=== PATIENT | male | born 1970 | race Caucasian/White ===

== ENCOUNTER → 2020-01-09 17:40 | Outpatient (BNVA) | payer MEDICAID, SELFPAY | PROVIDERS: Family Provider Family Medicine; PCP Family Medicine; Visit Provider Nurse Practitioner Family | DX: R05 Cough (principal); R68.89 Other general symptoms and signs | CPT/HCPCS: 87804 ==

== ENCOUNTER → 2020-06-11 09:28 | Outpatient (BNVA) | payer MEDICAID, SELFPAY | PROVIDERS: Family Provider Family Medicine; PCP Family Medicine; Visit Provider Psychiatry & Neurology Psychiatry | DX: F32.9 Major depressive disorder, single episode, unspecified (principal); F33.2 Major depressive disorder, recurrent severe without psychotic features; F43.12 Post-traumatic stress disorder, chronic | CPT/HCPCS: 90792; 80061; 83036; 83721 ==

== ENCOUNTER → 2020-07-09 14:00 | Outpatient (BNVA) | payer MEDICAID, SELFPAY ==
[2020-06-12 10:32] VITALS: BP 156/100; BMI 30.5
== END ==
PROVIDERS: Family Provider Family Medicine; PCP Family Medicine; Visit Provider Psychiatry & Neurology Psychiatry
DX: F33.2 Major depressive disorder, recurrent severe without psychotic features (principal)
CPT/HCPCS: 99203

== ENCOUNTER → 2020-08-28 09:42 | Outpatient (BNVA) | payer MEDICAID, SELFPAY ==
[2020-06-12 10:32] VITALS: BP 156/100; BMI 30.5
== END ==
PROVIDERS: Family Provider Family Medicine; PCP Family Medicine; Referring Provider Family Medicine; Visit Provider Anesthesiology Pain Medicine
DX: M47.812 Spondylosis without myelopathy or radiculopathy, cervical region (principal); M54.9 Dorsalgia, unspecified; M47.816 Spondylosis without myelopathy or radiculopathy, lumbar region; M19.90 Unspecified osteoarthritis, unspecified site; G62.9 Polyneuropathy, unspecified; M25.559 Pain in unspecified hip; M62.830 Muscle spasm of back; M51.36 Other intervertebral disc degeneration, lumbar region; F17.220 Nicotine dependence, chewing tobacco, uncomplicated; Z79.891 Long term (current) use of opiate analgesic
CPT/HCPCS: 99204

== ENCOUNTER 2020-09-24 13:13 | Outpatient (CLI) | payer MEDICAID, SELFPAY ==
[2020-06-12 10:32] VITALS: BP 156/100; BMI 30.5
--- NOTE | 2020-09-24 13:18 | XR_ITS ---
WS: [id number] Cervical spine, AP, odontoid, lateral and both obliques, 09/24/2020 Clinical Data: neck pain Comparison: None. Findings: No compression fractures are seen. The disc heights are normal. There is calcification of t he anterior longitudinal ligaments at C5-C6 and C6-C7. The oblique films show no foraminal narrowing. There is no prevertebral soft tissue swelling. The odontoid is unremarkable. The soft tissues of the neck and the lung apices are normal. XR/XR cervical spine 4-5V [id number] Impression: Calcification of the anterior longitudinal ligament at C5-C6 and C6-C7.
== END 2020-09-24 13:14 | disposition home or self-care (01) ==
LOC: RAD 13:17
PROVIDERS: PCP Family Medicine; Visit Provider Anesthesiology Pain Medicine
DX: M54.2 Cervicalgia (principal)
CPT/HCPCS: 72050

== ENCOUNTER → 2020-09-25 09:48 | Outpatient (BNVA) | payer MEDICAID, SELFPAY ==
[2020-06-12 10:32] VITALS: BP 156/100; BMI 30.5
== END ==
PROVIDERS: Family Provider Family Medicine; PCP Family Medicine; Visit Provider Anesthesiology Pain Medicine
DX: M51.36 Other intervertebral disc degeneration, lumbar region (principal); M47.816 Spondylosis without myelopathy or radiculopathy, lumbar region; M54.9 Dorsalgia, unspecified; M19.90 Unspecified osteoarthritis, unspecified site; M47.812 Spondylosis without myelopathy or radiculopathy, cervical region; G62.9 Polyneuropathy, unspecified; M25.551 Pain in right hip; M25.552 Pain in left hip; M62.830 Muscle spasm of back; F17.220 Nicotine dependence, chewing tobacco, uncomplicated; Z79.891 Long term (current) use of opiate analgesic
CPT/HCPCS: 99214

== ENCOUNTER → 2020-10-23 09:00 | Outpatient (BNVA) | payer MEDICAID, SELFPAY ==
[2020-06-12 10:32] VITALS: BP 156/100; BMI 30.5
== END ==
PROVIDERS: Family Provider Family Medicine; PCP Family Medicine; Visit Provider Anesthesiology Pain Medicine
DX: M51.36 Other intervertebral disc degeneration, lumbar region (principal); M47.816 Spondylosis without myelopathy or radiculopathy, lumbar region; M54.9 Dorsalgia, unspecified; M47.812 Spondylosis without myelopathy or radiculopathy, cervical region; M19.90 Unspecified osteoarthritis, unspecified site; M25.551 Pain in right hip; M25.552 Pain in left hip; G62.9 Polyneuropathy, unspecified; M62.830 Muscle spasm of back; F17.220 Nicotine dependence, chewing tobacco, uncomplicated; Z79.891 Long term (current) use of opiate analgesic
CPT/HCPCS: 99214

== ENCOUNTER → 2020-12-07 13:01 | Outpatient (BNVA) | payer MEDICAID, SELFPAY ==
[2020-06-12 10:32] VITALS: BP 156/100; BMI 30.5
== END ==
PROVIDERS: Family Provider Family Medicine; PCP Family Medicine; Visit Provider Anesthesiology Pain Medicine
DX: M54.16 Radiculopathy, lumbar region (principal); M51.36 Other intervertebral disc degeneration, lumbar region; M47.816 Spondylosis without myelopathy or radiculopathy, lumbar region; M54.9 Dorsalgia, unspecified; M47.812 Spondylosis without myelopathy or radiculopathy, cervical region; M19.90 Unspecified osteoarthritis, unspecified site; M25.551 Pain in right hip; M25.552 Pain in left hip; M62.830 Muscle spasm of back; G62.9 Polyneuropathy, unspecified; F17.220 Nicotine dependence, chewing tobacco, uncomplicated
CPT/HCPCS: 64483; 64484; 99212; J1100; J3490

== ENCOUNTER → 2021-01-04 09:01 | Outpatient (BNVA) | payer MEDICAID, SELFPAY ==
[2020-06-12 10:32] VITALS: BP 156/100; BMI 30.5
== END ==
PROVIDERS: Family Provider Family Medicine; PCP Family Medicine; Visit Provider Anesthesiology Pain Medicine
DX: M51.36 Other intervertebral disc degeneration, lumbar region (principal); M47.816 Spondylosis without myelopathy or radiculopathy, lumbar region; M54.9 Dorsalgia, unspecified; M47.812 Spondylosis without myelopathy or radiculopathy, cervical region; M16.0 Bilateral primary osteoarthritis of hip; G62.9 Polyneuropathy, unspecified; M25.559 Pain in unspecified hip; M62.830 Muscle spasm of back; F17.220 Nicotine dependence, chewing tobacco, uncomplicated; Z79.891 Long term (current) use of opiate analgesic
CPT/HCPCS: 99214

== ENCOUNTER → 2021-02-04 12:52 | Outpatient (BNVA) | payer MEDICAID, SELFPAY ==
[2021-01-04 10:03] VITALS: BP 156/100; BMI 30.5
== END ==
PROVIDERS: Family Provider Family Medicine; PCP Family Medicine; Visit Provider Anesthesiology Pain Medicine
DX: M54.41 Lumbago with sciatica, right side (principal); M51.36 Other intervertebral disc degeneration, lumbar region; M54.9 Dorsalgia, unspecified; M47.812 Spondylosis without myelopathy or radiculopathy, cervical region; M47.816 Spondylosis without myelopathy or radiculopathy, lumbar region; M19.90 Unspecified osteoarthritis, unspecified site; G62.9 Polyneuropathy, unspecified; M25.551 Pain in right hip; M62.830 Muscle spasm of back; F17.220 Nicotine dependence, chewing tobacco, uncomplicated; Z79.891 Long term (current) use of opiate analgesic
CPT/HCPCS: 99214

== ENCOUNTER → 2021-02-15 13:07 | Outpatient (BNVA) | payer MEDICAID, SELFPAY ==
[2021-01-04 10:03] VITALS: BP 156/100; BMI 30.5
== END ==
PROVIDERS: Family Provider Family Medicine; PCP Family Medicine; Visit Provider Anesthesiology Pain Medicine
DX: M47.816 Spondylosis without myelopathy or radiculopathy, lumbar region (principal); M54.9 Dorsalgia, unspecified; F17.220 Nicotine dependence, chewing tobacco, uncomplicated; Z79.891 Long term (current) use of opiate analgesic
CPT/HCPCS: 64493; 64494; 64495; J1030; J3490

== ENCOUNTER → 2021-03-09 12:46 | Outpatient (BNVA) | payer MEDICAID, SELFPAY ==
[2021-01-04 10:03] VITALS: BP 156/100; BMI 30.5
== END ==
PROVIDERS: Family Provider Family Medicine; PCP Family Medicine; Visit Provider Anesthesiology Pain Medicine
DX: M51.16 Intervertebral disc disorders with radiculopathy, lumbar region (principal); M51.36 Other intervertebral disc degeneration, lumbar region; M47.816 Spondylosis without myelopathy or radiculopathy, lumbar region; M54.9 Dorsalgia, unspecified; M47.812 Spondylosis without myelopathy or radiculopathy, cervical region; M19.90 Unspecified osteoarthritis, unspecified site; G62.9 Polyneuropathy, unspecified; M25.551 Pain in right hip; M25.552 Pain in left hip; M62.830 Muscle spasm of back; Z79.891 Long term (current) use of opiate analgesic
CPT/HCPCS: 99214

== ENCOUNTER → 2021-03-18 15:15 | Outpatient (BNVA) | payer MEDICAID, SELFPAY ==
[2021-01-04 10:03] VITALS: BP 156/100; BMI 30.5
== END ==
PROVIDERS: Family Provider Family Medicine; PCP Family Medicine; Visit Provider Psychiatry & Neurology Psychiatry
DX: Z72.820 Sleep deprivation (principal); F33.2 Major depressive disorder, recurrent severe without psychotic features
CPT/HCPCS: 99214

== ENCOUNTER 2021-04-06 15:42 | Outpatient (CLI) | payer MEDICAID, SELFPAY ==
[2021-01-04 10:03] VITALS: BP 156/100; BMI 30.5
--- NOTE | 2021-04-06 16:00 | MR_ITS ---
WS: [id number] MRI LUMBAR SPINE NONCONTRAST HISTORY: M51.16 - Intervertebral disc disorders with radiculopathy... COMPARISON: None available. TECHNIQUE: Sagittal and axial multisequence imaging is submitted. Normal lumbar alignment with no compression fractures or marrow edema. Mild desiccation of the L5-S1 disc without loss of height. Conus terminates normally at L1. L1-L2: Normal. L2-L3: Normal. L3-L4: Very mild disc bulging and ligamentum flavum hypertrophy no significant stenosis. L4-L5: Mild annular disc bulging with mild ligamentum flavum hypertrophy and facet arthritis. There i s mild narrowing of the central canal and subarticular recesses and foramina. Very mild disc encroach ment upon the L5 nerve roots. L5-S1: Mild annular disc bulging without contact on the nerve roots. Mild facet arthritis. No paravertebral soft tissue abnormalities. MR/MR lumbar spine wo con* [id number] IMPRESSION: 1. Very mild central and bilateral subarticular recess and foraminal stenosis at L4-5 without a focal disc protrusion. 2. Mild disc desiccation at L5-S1.
== END 2021-04-06 15:43 ==
LOC: RADSHAW 15:44
PROVIDERS: Family Provider Family Medicine; PCP Family Medicine; Visit Provider Anesthesiology Pain Medicine
DX: M51.36 Other intervertebral disc degeneration, lumbar region (principal); M51.16 Intervertebral disc disorders with radiculopathy, lumbar region; M47.816 Spondylosis without myelopathy or radiculopathy, lumbar region; M54.9 Dorsalgia, unspecified; M47.812 Spondylosis without myelopathy or radiculopathy, cervical region; M16.0 Bilateral primary osteoarthritis of hip; G62.9 Polyneuropathy, unspecified; M62.830 Muscle spasm of back; Z79.891 Long term (current) use of opiate analgesic
CPT/HCPCS: 72148; 99214

== ENCOUNTER → 2021-05-05 14:55 | Outpatient (BNVA) | payer OTHER, SELFPAY ==
[2021-01-04 10:03] VITALS: BP 156/100; BMI 30.5
== END ==
PROVIDERS: Family Provider Family Medicine; PCP Family Medicine; Visit Provider Psychiatry & Neurology Psychiatry
DX: F33.2 Major depressive disorder, recurrent severe without psychotic features (principal)
CPT/HCPCS: 80061; 83036

== ENCOUNTER → 2021-05-10 08:33 | Outpatient (BNVA) | payer MEDICAID, SELFPAY ==
[2021-05-07 14:25] VITALS: BP 143/86; BMI 33.1
== END ==
PROVIDERS: Family Provider Family Medicine; PCP Family Medicine; Visit Provider Anesthesiology Pain Medicine
DX: M51.16 Intervertebral disc disorders with radiculopathy, lumbar region (principal); M51.36 Other intervertebral disc degeneration, lumbar region; M47.816 Spondylosis without myelopathy or radiculopathy, lumbar region; M54.9 Dorsalgia, unspecified; M47.812 Spondylosis without myelopathy or radiculopathy, cervical region; M19.90 Unspecified osteoarthritis, unspecified site; G62.9 Polyneuropathy, unspecified; M25.551 Pain in right hip; M25.552 Pain in left hip; M62.830 Muscle spasm of back; Z79.899 Other long term (current) drug therapy; Z79.891 Long term (current) use of opiate analgesic
CPT/HCPCS: 99215

== ENCOUNTER → 2021-05-13 15:18 | Outpatient (BNVA) | payer MEDICAID, OTHER, SELFPAY ==
[2021-05-10 09:12] VITALS: BP 143/86; BMI 33.1
== END ==
PROVIDERS: Family Provider Family Medicine; PCP Family Medicine; Visit Provider Psychiatry & Neurology Psychiatry
DX: F33.2 Major depressive disorder, recurrent severe without psychotic features (principal)
CPT/HCPCS: 99214

== ENCOUNTER → 2021-06-07 08:44 | Outpatient (BNVA) | payer MEDICAID, SELFPAY ==
[2021-05-10 09:12] VITALS: BP 143/86; BMI 33.1
== END ==
PROVIDERS: Family Provider Family Medicine; PCP Family Medicine; Visit Provider Anesthesiology Pain Medicine
DX: R10.32 Left lower quadrant pain (principal); M51.16 Intervertebral disc disorders with radiculopathy, lumbar region; M51.36 Other intervertebral disc degeneration, lumbar region; M47.816 Spondylosis without myelopathy or radiculopathy, lumbar region; M47.812 Spondylosis without myelopathy or radiculopathy, cervical region; M19.90 Unspecified osteoarthritis, unspecified site; G62.9 Polyneuropathy, unspecified; M25.551 Pain in right hip; M25.552 Pain in left hip; M62.830 Muscle spasm of back; Z79.891 Long term (current) use of opiate analgesic
CPT/HCPCS: 99214

== ENCOUNTER → 2021-07-09 09:39 | Outpatient (BNVA) | payer MEDICAID, SELFPAY ==
[2021-05-10 09:12] VITALS: BP 143/86; BMI 33.1
== END ==
PROVIDERS: Family Provider Family Medicine; PCP Family Medicine; Visit Provider Anesthesiology Pain Medicine
DX: G89.29 Other chronic pain (principal); M47.816 Spondylosis without myelopathy or radiculopathy, lumbar region; M51.16 Intervertebral disc disorders with radiculopathy, lumbar region; M51.36 Other intervertebral disc degeneration, lumbar region; M47.812 Spondylosis without myelopathy or radiculopathy, cervical region; M16.0 Bilateral primary osteoarthritis of hip; M19.90 Unspecified osteoarthritis, unspecified site; G62.9 Polyneuropathy, unspecified; M62.830 Muscle spasm of back; Z79.891 Long term (current) use of opiate analgesic
CPT/HCPCS: 99213

== ENCOUNTER → 2021-08-10 09:42 | Outpatient (BNVA) | payer MEDICAID, SELFPAY ==
[2021-05-10 09:12] VITALS: BP 143/86; BMI 33.1
== END ==
PROVIDERS: Family Provider Family Medicine; PCP Family Medicine; Visit Provider Anesthesiology Pain Medicine
DX: M51.36 Other intervertebral disc degeneration, lumbar region (principal); M47.816 Spondylosis without myelopathy or radiculopathy, lumbar region; M51.16 Intervertebral disc disorders with radiculopathy, lumbar region; M47.812 Spondylosis without myelopathy or radiculopathy, cervical region; M16.0 Bilateral primary osteoarthritis of hip; G62.9 Polyneuropathy, unspecified; M62.830 Muscle spasm of back; Z79.891 Long term (current) use of opiate analgesic
CPT/HCPCS: 99214

== ENCOUNTER → 2022-01-18 13:15 | Outpatient (BNVA) | payer MEDICAID, SELFPAY ==
[2021-05-10 09:12] VITALS: BP 143/86; BMI 33.1
== END ==
PROVIDERS: Family Provider Family Medicine; PCP Family Medicine; Visit Provider Psychiatry & Neurology Psychiatry
DX: F33.2 Major depressive disorder, recurrent severe without psychotic features (principal); M51.36 Other intervertebral disc degeneration, lumbar region
CPT/HCPCS: 99214

== ENCOUNTER → 2022-04-28 10:22 | Outpatient (BNVA) | payer MEDICAID, SELFPAY ==
[2021-05-10 09:12] VITALS: BP 143/86; BMI 33.1
== END ==
PROVIDERS: Family Provider Family Medicine; PCP Family Medicine; Referring Provider Family Medicine; Visit Provider Internal Medicine
DX: E11.40 Type 2 diabetes mellitus with diabetic neuropathy, unspecified (principal); E11.59 Type 2 diabetes mellitus with other circulatory complications; I25.10 Atherosclerotic heart disease of native coronary artery without angina pectoris; E78.2 Mixed hyperlipidemia; Z79.4 Long term (current) use of insulin; Z79.84 Long term (current) use of oral hypoglycemic drugs
CPT/HCPCS: 99204

== ENCOUNTER 2023-07-26 10:53 | Emergency (ER) | payer MEDICAID, SELFPAY ==
[2023-03-28 13:21] VITALS: BP 174/115; BMI 34.6
[2023-07-26 11:21] VITALS: BP 165/103; PULSE 92; RESP 18; TEMP 36.8; O2SAT 97
[2023-07-26 12:16] LABS: Basophils # 0.1 10^3/uL (0.0-0.1); Basophils % 0.8 %; Eosinophils # 0.2 10^3/uL (0.0-0.8); Eosinophils % 2.2 %; Hematocrit 43.3 % (37-53); Lymphocytes # 2.4 10^3/uL (0.8-4.8); Lymphocytes % 23.7 %; Mean Corpuscular HGB Conc 35.3 g/dL (30-55); Mean Corpuscular Hemoglobin 31.6 pg (27-33); Mean Corpuscular Volume 89.5 fl (82-101); Mean Platelet Volume 8.6 fL (7.4-10.4); Monocytes # 0.5 10^3/uL (0.2-0.9); Monocytes % 5.1 %; Neutrophils # 6.86 10^3/uL (1.8-7.7); Neutrophils % 67.5 %; Nucleated Red Blood Cells % 0 %; Platelet Count 305 10^3/cmm (157-399); Red Blood Count 4.84 10^6/uL (3.85-5.65); Red Cell Distribution Width 12.9 % (12.1-15.1); White Blood Count 10.16 10^3/uL (3.29-11.43)
[2023-07-26 12:28] LABS: Albumin Level 4.6 g/dL (3.5-5.2)
[2023-07-26 12:37] LABS: Alanine Aminotransferase 14 U/L (0-41); Alkaline Phosphatase 102 U/L (40-130); Anion Gap 17.7 (5-19); Aspartate Amino Transferase 11 U/L (0-40); Blood Urea Nitrogen 21 mg/dL (6-20); Calcium 9.9 mg/dL (8.5-10.5); Carbon Dioxide 27 mmol/L (22-29); Chloride 94 mmol/L (98-107); Globulin 3.2 g/dL (1.3-4.6); Glomerular Filtration Rate 62.9 mL/min (90-130); Glucose 243 mg/dL (65-115); Lipase 23 U/L (13-60); Osmolality Calculated 289 mOsm/kg (285-295); Potassium 4.7 mmol/L (3.5-5.1); Sodium 134 mmol/L (136-145); Total Bilirubin 0.8 mg/dL (0.15-1.2); Total Protein 7.8 g/dL (6.6-8.7)
== END 2023-07-26 13:51 | disposition left against medical advice (07) ==
PROVIDERS: Emergency Medicine; Emergency Provider Family Medicine; PCP Family Medicine
DX: Z53.21 Procedure and treatment not carried out due to patient leaving prior to being seen by health care provider (principal)
CPT/HCPCS: 80053; 83690; 85025; 99283

== ENCOUNTER 2025-02-14 13:58 | Outpatient (CLI) | payer MEDICAID, SELFPAY ==
[2023-03-28 13:21] VITALS: BP 174/115; BMI 34.6
[2025-02-14 15:10] LABS: Hepatitis A Antibody IgM Non-Reactive (Nonreactive); Hepatitis B Core IgM Non-Reactive (Nonreactive); Hepatitis B Surface Antigen Non-Reactive (Nonreactive); Hepatitis C Virus Antibody Non-Reactive (Nonreactive)
== END 2025-02-14 13:59 | disposition home or self-care (01) ==
LOC: LAB 14:03
PROVIDERS: PCP Family Medicine; Visit Provider Nurse Practitioner Family
DX: R16.0 Hepatomegaly, not elsewhere classified (principal)
CPT/HCPCS: 36415; 80074